=== PATIENT | female | born 1955 | race Caucasian/White ===

== ENCOUNTER → 2017-09-13 | Outpatient (CLI) | payer BC ==
--- NOTE | 2017-09-15 09:54 | MM ---
Reason for exam: screening (asymptomatic). Last mammogram was performed 11 months ago. History: Patient is postmenopausal. Family history of breast cancer in uncle at age 70 and breast cancer in paternal aunt at age 75. Physical Findings: A clinical breast exam by your physician is recommended on an annual basis and results should be correlated with mammographic findings. MG Screening Mammo w CAD Bilateral CC and MLO view(s) were taken. Prior study comparison: October 06, 2016, bilateral MG screening mammo w CAD. October 17, 2015, bilateral MG screening mammo w CAD. There are scattered fibroglandular densities. There is chronic nodularity in the left breast. No significant changes when compared with prior studies. ASSESSMENT: Negative, BI-RAD 1 RECOMMENDATION: Routine screening mammogram of both breasts in 1 year.
== END | disposition home or self-care (01) ==
LOC: RADMAMWWP 16:46
PROVIDERS: ATTEND Family Medicine
DX: Z12.31 Encounter for screening mammogram for malignant neoplasm of breast (principal)

== ENCOUNTER 2018-01-07 11:45 | Day surgery (SDC) | payer BC ==
[2018-01-04 15:19] VITALS: BMI 37.4
[~2018-01-07 11:45] MED LIST: LACTATED RINGERS 1,000 ML IV SCH
[2018-01-07 13:20] VITALS: RESP 16; TEMP 98.2
[2018-01-07] MEDS ORDERED: LIDOCAINE 1% 20 ML VIAL (10MG/ML) FOR IV START INTRADERMA ONE (13:32)
[2018-01-07] MEDS ORDERED: LIDOCAINE 1% INJ 10MG/ML (20 ML MDV) ONE (13:45)
[2018-01-07] MEDS ORDERED: PROPOFOL 10 MG/ML 20 ML VIAL IV ONE (13:45)
--- NOTE | 2018-01-07 13:59 | P.GSHP ---
History of Present Illness H&P Date: 01/07/18 Chief Complaint: Colon cancer screening Patient here today for colonoscopy. Last colonoscopy 5 years ago. She has a family history of colon cancer in her father. Last colonoscopy was normal. No bowel related complaints. Past Medical History Additional Past Medical History / Comment(s): 07/29/15 Pt admitted to floor s/ p Total R knee arthroplasty. Ear infections as a child. History of Any Multi-Drug Resistant Organisms: None Reported Past Surgical History: Hysterectomy, Joint Replacement, Orthopedic Surgery, Tonsillectomy Additional Past Surgical History / Comment(s): 07/29/15 Total R knee arthroplasty. 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 Past Anesthesia/Blood Transfusion Reactions: Family History of Problems w/ Anesthesia Additional Past Anesthesia/Blood Transfusion Reaction / Comment(s): States is now allergic to spinal anesthesia. Also states that her sister is difficult to wake up from anesthesia. Smoking Status: Never smoker - Past Family History Father Family Medical History: Cancer Additional Family Medical History / Comment(s): Father had colon cancer. He at age 83 or 84 yrs. Mother Additional Family Medical History / Comment(s): Mother had [employer] - a form of MD. She at age 85yrs. Medications and Allergies Home Medications Medication Instructions Recorded Confirmed Type Antiarthritic Combination No.2 900 mg PO DAILY 07/17/15 01/07/18 History [Glucosamine-Chondroitin] Cranberry Conc/C/Bacill Coag 1 tab PO DAILY 07/17/15 01/07/18 History [Cranberry Tablet] Multivit with Calcium,Iron,Min 1 tab PO DAILY 07/17/15 01/07/18 History [Women's Daily Multivitamin] Omeprazole [PriLOSEC] 20 mg PO AC-BRKFST 07/17/15 01/07/18 History Zolpidem [Ambien] 10 mg PO HS PRN 07/17/15 01/07/18 History Allergies Allergy/AdvReac Type Severity Reaction Status Date / Time adhesive tape Allergy Rash/Hives Verified 01/07/18 13:23 bee pollen Allergy Anaphylaxis Verified 01/07/18 13:23 Latex, Natural Rubber Allergy rash, Verified 01/07/18 13:23 facial swelling sulfamethoxazole Allergy lips numb Verified 03/23/18 13:23 [From Bactrim] trimethoprim [From Bactrim] Allergy lips numb Verified 01/07/18 13:23 spinal anesthesia Allergy Rash/Hives Uncoded 01/07/18 13:23 Surgical - Exam Vital Signs Temp Pulse Resp BP Pulse Ox 98.2 F 69 16 124/82 98 01/07/18 13:19 01/07/18 13:19 01/07/18 13:19 01/07/18 13:19 01/07/18 13:19 Physical exam: General: Well-developed, well-nourished HEENT: Normocephalic, sclerae nonicteric Abdomen: Nontender, nondistended Extremities: No edema Neuro: Alert and oriented Assessment and Plan (1) Colon cancer screening Narrative/Plan: Will proceed with colonoscopy at this time. Current Visit: Yes Status: Acute Code(s): Z12.11 - ENCOUNTER FOR SCREENING FOR MALIGNANT NEOPLASM OF COLON SNOMED Code(s): 101541769
--- NOTE | 2018-01-07 14:11 | P.PCN ---
Date of Procedure: 01/07/18 Procedure(s) Performed: PREOPERATIVE DIAGNOSIS: Colon cancer screening, family history POSTOPERATIVE DIAGNOSIS: Sigmoid colon polyp PROCEDURE: Colonoscopy with snare polypectomy ANESTHESIA: MAC SURGEON: Livan Murphy M.D. SPECIMENS: sigmoid polyp ENDOSCOPIC PROCEDURE: The patient was placed on the endoscopy table in the left decubitus position. The Olympus colonoscope was inserted into the anus and passed under direct visualization to the base of the cecum. The appendiceal orifice was visualized. From that point the scope was slowly withdrawn inspecting all surfaces carefully. There were no neoplastic inflammatory or polypoid lesions throughout the cecum, ascending, transverse, and ascending colon. In the sigmoid colon there was a small polyp removed using the snare with cautery technique. The remainder of the sigmoid and rectum appeared normal. There was no visible diverticulosis. Digital rectal examination was normal. The patient was taken to the recovery room in stable condition per anesthesia guidelines. RECOMMENDATIONS: await biopsy results. Follow-up colonoscopy 5 years.
[2018-01-07 14:39] VITALS: BP 132/62; PULSE 65
== END 2018-01-07 15:01 | disposition home or self-care (01) ==
LOC: ORWHC2ENDO 11:45
PROVIDERS: ATTEND Surgery
DX: Z12.11 Encounter for screening for malignant neoplasm of colon (principal); D12.5 Benign neoplasm of sigmoid colon; Z80.0 Family history of malignant neoplasm of digestive organs; Z79.899 Other long term (current) drug therapy; Z88.4 Allergy status to anesthetic agent; Z88.2 Allergy status to sulfonamides; Z91.030 Bee allergy status; Z91.040 Latex allergy status
CPT/HCPCS: 88305; 45385; J2001; J2704

== ENCOUNTER → 2018-10-21 | Outpatient (CLI) | payer BC ==
--- NOTE | 2018-10-30 11:21 | MM ---
Reason for exam: screening (asymptomatic). Last mammogram was performed 1 year and 1 month ago. History: Patient is postmenopausal. Family history of breast cancer in uncle at age 70 and breast cancer in paternal aunt at age 75. MG 3D Screening Mammo W/Cad Bilateral CC and MLO view(s) were taken. Prior study comparison: September 13, 2017, bilateral MG screening mammo w CAD. October 06, 2016, bilateral MG screening mammo w CAD. There are scattered fibroglandular densities. There are benign-appearing round bilateral breast calcifications. Chronic nodularity left breast. No discrete abnormality. ASSESSMENT: Benign, BI-RAD 2 RECOMMENDATION: Routine screening mammogram of both breasts in 1 year.
== END | disposition home or self-care (01) ==
LOC: RADMAMWWP 07:30
PROVIDERS: ATTEND Family Medicine
DX: Z12.31 Encounter for screening mammogram for malignant neoplasm of breast (principal)
CPT/HCPCS: 77063; 77067

== ENCOUNTER 2019-02-21 07:15 | Emergency (ER) | payer BC ==
[2019-02-21 07:22] VITALS: BP 154/78; PULSE 70; RESP 20; TEMP 97.5
[2019-02-21] MEDS ORDERED: DEXAMETHASONE SOD PHOSPHATE 10 MG/ML 1 ML VIAL IM STA (08:03)
--- NOTE | 2019-02-21 08:03 | ED ---
General Adult HPI - General Chief complaint: ENT Stated complaint: Sore throat Time Seen by Provider: 02/21/19 07:31 Source: patient, family, RN notes reviewed - History of Present Illness Initial comments: The patient 63-year-old female presented to the emergency room today with a chief complaint of a sore throat. Patient doesn't that symptoms started 1 week ago. Patient does admit that THE RIGHT SIDE OF THE THROAT. SHE STATES IT HURTS WHEN SHE SWALLOWS. SHE DESCRIBES IT A RAZOR BLADE FEELING. SHE DOES NOT THAT SHE HAD SIMILAR SYMPTOMS APPROXIMATELY 12-15 YEARS AGO WHEN SHE WAS DIAGNOSED WITH A LINGULAR TONSILLITIS. SHE STATES THAT SHE HAS BEEN FOLLOWING UP WITH THE FAMILY DOCTOR HAD HER ON AMOXICILLIN INITIALLY BUT SHE FOLLOWED UP YESTERDAY AND WAS CHANGED TO AZITHROMYCIN. SHE STATES SHE'S HAD ONE DOSE OF THIS. PATIENT STATES THAT WHICH WOKE UP SHE JUST FELT THAT THE PAIN WAS NOT ANY BETTER SO SHE DECIDED TO COME. THE EMERGENCY ROOM. SHE STATES THAT IT'S VERY SHORT WHEN SHE SWALLOWS. SHE DENIES ANY OTHER COMPLAINTS OR SYMPTOMS. Patient denies any recent fever, chills, shortness of breath, chest pain, back pain, abdominal pain, nausea or vomiting, numbness or tingling, headaches or visual changes, or any other complaints. - Related Data Home Medications Medication Instructions Recorded Confirmed Antiarthritic Combination No.2 900 mg PO DAILY 07/17/15 01/07/18 [Glucosamine-Chondroitin] Cranberry Conc/C/Bacill Coag 1 tab PO DAILY 07/17/15 01/07/18 [Cranberry Tablet] Multivit with Calcium,Iron,Min 1 tab PO DAILY 07/17/15 01/07/18 [Women's Daily Multivitamin] Omeprazole [PriLOSEC] 20 mg PO AC-BRKFST 07/17/15 01/07/18 Zolpidem [Ambien] 10 mg PO HS PRN 07/17/15 01/07/18 Allergies Allergy/AdvReac Type Severity Reaction Status Date / Time adhesive tape Allergy Rash/Hives Verified 02/21/19 07:22 bee pollen Allergy Anaphylaxis Verified 02/21/19 07:22 Latex, Natural Rubber Allergy rash, Verified 02/21/19 07:22 facial swelling sulfamethoxazole Allergy lips numb Verified 02/21/19 07:22 [From Bactrim] trimethoprim [From Bactrim] Allergy lips numb Verified 02/21/19 07:22 spinal anesthesia Allergy Rash/Hives Uncoded 02/21/19 07:22 Review of Systems ROS Statement: Those systems with pertinent positive or pertinent negative responses have been documented in the HPI. ROS Other: All systems not noted in ROS Statement are negative. Past Medical History Additional Past Medical History / Comment(s): 07/29/15 Pt admitted to floor s/p Total R knee arthroplasty. Ear infections as a child. History of Any Multi-Drug Resistant Organisms: None Reported Past Surgical History: Hysterectomy, Joint Replacement, Orthopedic Surgery, Tonsillectomy Additional Past Surgical History / Comment(s): 07/29/15 Total R knee arthroplasty. 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 Past Anesthesia/Blood Transfusion Reactions: Family History of Problems w/ Anesthesia Additional Past Anesthesia/Blood Transfusion Reaction / Comment(s): States is now allergic to spinal anesthesia. Also states that her sister is difficult to wake up from anesthesia. Past Psychological History: No Psychological Hx Reported Smoking Status: Never smoker Past Alcohol Use History: None Reported Past Drug Use History: None Reported - Past Family History Father Family Medical History: Cancer Additional Family Medical History / Comment(s): Father had colon cancer. He at age 83 or 84 yrs. Mother Family Medical History: Musculoskeletal Disorder Additional Family Medical History / Comment(s): Mother had [employer] - a form of MD. She at age 85yrs. General Exam - General Exam Comments Initial Comments: General: The patient is awake and alert, in no distress, and does not appear acutely ill. Eye: There is normal conjunctiva bilaterally. No signs of icterus. Ears, nose, mouth and throat: There are moist mucous membranes and no oral lesions. Uvula midline. Patient swallows without difficulty. No redness, exudate appreciated on exam. TMs clear bilaterally. Neck: The neck is supple, there is no tenderness or JVD. Cardiovascular: There is a regular rate and rhythm. No murmur, rub or gallop is appreciated. Respiratory: Lungs are clear to auscultation, respirations are non-labored, breath sounds are equal. No wheezes, stridor, rales, or rhonchi. Musculoskeletal: Normal ROM, no tenderness. Neurological: A&O x 3. CN II-XII intact, There are no obvious motor or sensory deficits. Coordination appears grossly intact. Speech is normal. Skin: Skin is warm and dry and no rashes or lesions are noted. Psychiatric: Cooperative, appropriate mood & affect, normal judgment. Course Vital Signs 02/21/19 07:20 Temperature 97.5 F L Pulse Rate 70 Respiratory 20 Rate Blood Pressure 154/78 O2 Sat by Pulse 98 Oximetry Medical Decision Making - Medical Decision Making Options were discussed with patient about imaging here in the emergency room. She was offered to have a CT of the area to rule out any worsening infection. Patient has declined CAT scan. She states she would like to try dose of steroids. Patient given dose of Decadron here in emergency room. She is advised continue with her antibiotics advised close follow-up the family doctor in the next few days. Advised return here to the emergency room symptoms increase or worsen. Disposition Clinical Impression: Acute pharyngitis Disposition: HOME SELF-CARE Condition: Good Instructions (If sedation given, give patient instructions): Pharyngitis (ED) Additional Instructions: Please use medication as discussed. Please follow-up with family doctor in the next 2 days of symptoms have not improved. Please return to emergency room if the symptoms increase or worsen or for any other concerns. Is patient prescribed a controlled substance at d/c from ED?: No Referrals: Geo Patino DO [Primary Care Provider] - 1-2 days Time of Disposition: 08:02
== END 2019-02-21 08:22 | disposition home or self-care (01) ==
LOC: EC 07:15
DX: J02.9 Acute pharyngitis, unspecified (principal); Z96.651 Presence of right artificial knee joint; Z53.29 Procedure and treatment not carried out because of patient's decision for other reasons; Z79.899 Other long term (current) drug therapy; Z91.048 Other nonmedicinal substance allergy status; Z91.040 Latex allergy status; Z88.2 Allergy status to sulfonamides; Z88.4 Allergy status to anesthetic agent
CPT/HCPCS: 99282; 96372; J1100

== ENCOUNTER → 2019-11-24 | Outpatient (CLI) | payer BC ==
--- NOTE | 2019-11-27 08:21 | MM ---
Reason for exam: screening (asymptomatic). Last mammogram was performed 1 year and 1 month ago. History: Patient is postmenopausal. Family history of breast cancer in uncle at age 70 and breast cancer in paternal aunt at age 75. Physical Findings: A clinical breast exam by your physician is recommended on an annual basis and results should be correlated with mammographic findings. MG 3D Screening Mammo W/Cad Bilateral CC and MLO view(s) were taken. Prior study comparison: October 21, 2018, bilateral MG 3d screening mammo w/cad. September 13, 2017, bilateral MG screening mammo w CAD. There are scattered fibroglandular densities. Benign appearing calcifications in the left breast and an intramammary lymph node. No suspicious abnormality. No significant changes when compared with prior studies. ASSESSMENT: Benign, BI-RAD 2 RECOMMENDATION: Routine screening mammogram of both breasts in 1 year.
== END | disposition home or self-care (01) ==
LOC: RADMAMWWP 08:56
PROVIDERS: ATTEND Family Medicine
DX: Z12.31 Encounter for screening mammogram for malignant neoplasm of breast (principal); Z80.3 Family history of malignant neoplasm of breast
CPT/HCPCS: 77063; 77067

== ENCOUNTER → 2021-01-31 | Outpatient (CLI) | payer BC ==
--- NOTE | 2021-02-03 14:34 | MM ---
Reason for exam: screening (asymptomatic). Last mammogram was performed 1 year and 2 months ago. History: Patient is postmenopausal. Family history of breast cancer in uncle at age 70 and breast cancer in paternal aunt at age 75. Physical Findings: A clinical breast exam by your physician is recommended on an annual basis and results should be correlated with mammographic findings. MG 3D Screening Mammo W/Cad Bilateral CC and MLO view(s) were taken. Prior study comparison: November 24, 2019, bilateral MG 3d screening mammo w/cad. October 21, 2018, bilateral MG 3d screening mammo w/cad. There are scattered fibroglandular densities. There are benign appearing round calcifications bilaterally. There is chronic nodularity in the left upper outer quadrant. There is no discrete abnormality. ASSESSMENT: Benign, BI-RAD 2 RECOMMENDATION: Routine screening mammogram of both breasts in 1 year.
== END | disposition home or self-care (01) ==
LOC: RADMAMWWP 07:52
PROVIDERS: ATTEND Family Medicine
DX: Z12.31 Encounter for screening mammogram for malignant neoplasm of breast (principal); Z80.3 Family history of malignant neoplasm of breast
CPT/HCPCS: 77063; 77067

== ENCOUNTER 2023-05-30 07:16 | Observation (INO) | payer BC, MEDICARE ==
[2023-05-30] MEDS ORDERED: PANTOPRAZOLE 40 MG/10 ML VIAL IVP STA (07:35)
[2023-05-30] MEDS ORDERED: SODIUM CHLORIDE 0.9% 500 ML 500 ML IV STA (07:35)
[2023-05-30] MEDS ORDERED: ONDANSETRON 4 MG/2 ML VIAL IVP STA (07:35)
[2023-05-30] MEDS ORDERED: MAG HYDROX/AL HYDROX/SIMETH 30 ML, HYOSCYAMINE ELIXIR 10 ML, LIDOCAINE 2% GLYDO JELLY 1... PO STA ×3 (07:36)
--- NOTE | 2023-05-30 07:47 | ED ---
General Adult HPI - General Chief complaint: Abdominal Pain Stated complaint: upper abd pain Time Seen by Provider: 05/30/23 07:26 Source: patient, RN notes reviewed, old records reviewed Mode of arrival: ambulatory Limitations: no limitations - History of Present Illness Initial comments: 68-year-old female presenting with presently 5 hours of epigastric abdominal pain with vomiting. Symptoms began at approximately 2 AM. She had taken some Tums with out relief and this was followed almost immediately put with vomiting. She denies any radiating symptoms. No fever. - Related Data Home Medications Medication Instructions Recorded Confirmed Zolpidem [Ambien] 10 mg PO HS PRN 07/17/15 05/30/23 Clindamycin Phosphate 1 applic TOPICAL BID 05/30/23 05/30/23 Escitalopram [Lexapro] 10 mg PO DAILY 05/30/23 05/30/23 Allergies Allergy/AdvReac Type Severity Reaction Status Date / Time adhesive tape Allergy Rash/Hives Verified 05/30/23 11:34 bee pollen Allergy Anaphylaxis Verified 05/30/23 11:34 Latex, Natural Rubber Allergy rash, Verified 05/30/23 11:34 facial swelling sulfamethoxazole Allergy lips numb Verified 05/30/23 11:34 [From Bactrim] trimethoprim [From Bactrim] Allergy lips numb Verified 05/30/23 11:34 spinal anesthesia Allergy Rash/Hives Uncoded 05/30/23 11:34 Review of Systems ROS Statement: Those systems with pertinent positive or pertinent negative responses have been documented in the HPI. ROS Other: All systems not noted in ROS Statement are negative. Past Medical History Additional Past Medical History / Comment(s): 07/29/15 Pt admitted to floor s/p Total R knee arthroplasty. Ear infections as a child. History of Any Multi-Drug Resistant Organisms: None Reported Past Surgical History: Hysterectomy, Joint Replacement, Orthopedic Surgery, Tonsillectomy Additional Past Surgical History / Comment(s): 07/29/15 Total R knee arthr oplasty. 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 Past Anesthesia/Blood Transfusion Reactions: Family History of Problems w/ Anesthesia Additional Past Anesthesia/Blood Transfusion Reaction / Comment(s): States is now allergic to spinal anesthesia. Also states that her sister is difficult to wake up from anesthesia. Past Psychological History: No Psychological Hx Reported Smoking Status: Never smoker Past Alcohol Use History: None Reported Past Drug Use History: None Reported - Past Family History Father Family Medical History: Cancer Additional Family Medical History / Comment(s): Father had colon cancer. He at age 83 or 84 yrs. Mother Family Medical History: Musculoskeletal Disorder Additional Family Medical History / Comment(s): Mother had IBM - a form of MD. She at age 85yrs. General Exam Limitations: no limitations General appearance: alert, in no apparent distress Head exam: Present: atraumatic, normocephalic Eye exam: Present: normal appearance, PERRL ENT exam: Present: normal exam Neck exam: Present: normal inspection. Absent: tenderness, meningismus Respiratory exam: Present: normal lung sounds bilaterally. Absent: respiratory distress Cardiovascular Exam: Present: regular rate, normal rhythm GI/Abdominal exam: Present: soft, tenderness (Epigastric and right upper quadrant). Absent: distended, guarding, rebound Extremities exam: Present: normal inspection, normal capillary refill Neurological exam: Present: alert, oriented X3, CN II-XII intact. Absent: motor sensory deficit Psychiatric exam: Present: normal affect, normal mood Skin exam: Present: warm, dry, intact Course Vital Signs 05/30/23 05/30/23 05/30/23 07:20 09:17 10:00 Temperature 98.3 F Pulse Rate 65 68 65 Respiratory 20 17 18 Rate Blood Pressure 160/84 130/62 121/65 O2 Sat by Pulse 99 96 96 Oximetry Medical Decision Making - Medical Decision Making Was pt. sent in by a medical professional or institution (, PA, WIRELESS TECHNICIAN, urgent care, hospital, or [facility]...) When possible be specific @ -No Did you speak to anyone other than the patient for history (EMS, parent, family, police, friend...)? What history was obtained from this source @ -No Did you review nursing and triage notes (agree or disagree)? Why? @ -I reviewed and agree with nursing and triage notes Were old charts reviewed (outside hosp., previous admission, EMS record, old EK G, old radiological studies, urgent care reports/EKG's, [facility] records)? Report findings @ -No old charts were reviewed Differential Diagnosis (chest pain, altered mental status, abdominal pain women, abdominal pain men, vaginal bleeding, weakness, fever, dyspnea, syncope, headache, dizziness, GI bleed, back pain, seizure, CVA, palpatations, mental health, musculoskeletal)? @ Differential Abdominal Pain Women: Appendicitis, Cholecystitis, diverticulosis, ischemic bowel, pancreatitis, hepatitis, UTI, gastroenteritis, AAA, incarcerated hernia, bowel obstruction, constipation, inflammatory bowel, hepatitis, peptic ulcer disease, splenic infarction, perforated viscus, vulvitis, ovarian torsion, PID, kidney stone, placenta abruption, this is not meant to be an all-inclusive list EKG interpreted by me (3pts min.). @ -Sinus rhythm rate of 65, NM interval 125, QRS duration 91, QTC 427 elevat ion. X-rays interpreted by me (1pt min.). @ -None done CT interpreted by me (1pt min.). @ -None done U/S interpreted by me (1pt. min.). @ -None done What testing was considered but not performed or refused? (CT, X-rays, U/S, labs)? Why? @ -None What meds were considered but not given or refused? Why? @ -None Did you discuss the management of the patient with other professionals (professionals i.e. , PA, WIRELESS TECHNICIAN, lab, RT, psych nurse, hospice social worker, toll collector supervisor, teacher, search and rescue officer, family independence case manager)? Give summary @ -[Dr. Deal Was smoking cessation discussed for >3mins.? @ -No Was critical care preformed (if so, how long)? @ -No Were there social determinants of health that impacted care today? How? (Homelessness, low income, unemployed, alcoholism, drug addiction, transport ation, low edu. Level, literacy, decrease access to med. care, usp, rehab)? @ -No Was there de-escalation of care discussed even if they declined (Discuss DNR or withdrawal of care, Hospice)? DNR status @ -No What co-morbidities impacted this encounter? (DM, HTN, Smoking, COPD, CAD, Cancer, CVA, ARF, Chemo, Hep., AIDS, mental health diagnosis, sleep apnea, morbid obesity)? @ -[ Was patient admitted / discharged? Hospital course, mention meds given and route, prescriptions, significant lab abnormalities, going to OR and other pertinent info. @ -[68-year-old female with epigastric right upper quadrant abdominal pain. Vision is in sinus rhythm. She has normal laboratory tests including CBC, CMP and troponin. Ultrasound shows gallstones likely the cause of her pain. She continues to have pain while the emergency department she will be admitted for symptomatic cholelithiasis. Admitted to general surgery. Undiagnosed new problem with uncertain prognosis? @ -No Drug Therapy requiring intensive monitoring for toxicity (Heparin, Nitro, Insulin, Cardizem)? @ -No Were any procedures done? @ -No Diagnosis/symptom? @ -[Cholelithiasis, symptomatic gallstones Acute, or Chronic, or Acute on Chronic? @ Acute Uncomplicated (without systemic symptoms) or Complicated (systemic symptoms)? @ -default Side effects of treatment? @ -No Exacerbation, Progression, or Severe Exacerbation? @ -No Poses a threat to life or bodily function? How? (Chest pain, USA, MS, pneumonia, PE, COPD, DKA, ARF, appy, cholecystitis, CVA, Diverticulitis, Homicidal, Suicidal, threat to staff... and all critical care pts) @ -[Low risk at this time - Lab Data Result diagrams: 05/30/23 07:37 05/30/23 07:37 Lab Results 05/30/23 05/30/23 05/30/23 Range/Units 07:37 07:37 07:37 WBC 7.9 (3.8-10.6) k/uL RBC 4.62 (3.80-5.40) m/uL Hgb 13.5 (11.4-16.0) gm/dL Hct 39.5 (34.0-46.0) % MCV 85.4 (80.0-100.0) fL MCH 29.3 (25.0-35.0) pg MCHC 34.3 (31.0-37.0) g/dL RDW 13.0 (11.5-15.5) % Plt Count 281 (150-450) k/uL MPV 6.9 Neutrophils % 69 % Lymphocytes % 19 % Monocytes % 6 % Eosinophils % 3 % Basophils % 1 % Neutrophils # 5.4 (1.3-7.7) k/uL Lymphocytes # 1.5 (1.0-4.8) k/uL Monocytes # 0.5 (0-1.0) k/uL Eosinophils # 0.2 (0-0.7) k/uL Basophils # 0.1 (0-0.2) k/uL PT 9.9 (9.0-12.0) sec INR 0.9 (<1.2) APTT 26.0 (22.0-30.0) sec Sodium (137-145) mmol/L Potassium (3.5-5.1) mmol/L Chloride (98-107) mmol/L Carbon Dioxide (22-30) mmol/L Anion Gap mmol/L BUN (7-17) mg/dL Creatinine (0.52-1.04) mg/dL Est GFR (CKD-EPI)AfAm (>60 ml/min/1.73 sqM) Est GFR (CKD-EPI)NonAf (>60 ml/min/1.73 sqM) Glucose (74-99) mg/dL Plasma Lactic Acid Fan (0.7-2.0) mmol/L Calcium (8.4-10.2) mg/dL Total Bilirubin (0.2-1.3) mg/dL AST (14-36) U/L ALT (4-34) U/L Alkaline Phosphatase (38-126) U/L Troponin I (0.000-0.034) ng/mL Total Protein (6.3-8.2) g/dL Albumin (3.5-5.0) g/dL Amylase (30-110) U/L Lipase (23-300) U/L Urine Color Colorless Urine Appearance Clear (Clear) Urine pH 7.0 (5.0-8.0) Ur Specific [place] 1.010 (1.001-1.035) Urine Protein Negative (Negative) Urine Glucose (UA) Negative (Negative) Urine Ketones Negative (Negative) Urine Blood Negative (Negative) Urine Nitrite Negative (Negative) Urine Bilirubin Negative (Negative) Urine Urobilinogen <2.0 (<2.0) mg/dL Ur Leukocyte Esterase Negative (Negative) 05/30/23 05/30/23 05/30/23 Range/Units 07:37 07:37 07:37 WBC (3.8-10.6) k/uL RBC (3.80-5.40) m/uL Hgb (11.4-16.0) gm/dL Hct (34.0-46.0) % MCV (80.0-100.0) fL MCH (25.0-35.0) pg MCHC (31.0-37.0) g/dL RDW (11.5-15.5) % Plt Count (150-450) k/uL MPV Neutrophils % % Lymphocytes % % Monocytes % % Eosinophils % % Basophils % % Neutrophils # (1.3-7.7) k/uL Lymphocytes # (1.0-4.8) k/uL Monocytes # (0-1.0) k/uL Eosinophils # (0-0.7) k/uL Basophils # (0-0.2) k/uL PT (9.0-12.0) sec INR (<1.2) APTT (22.0-30.0) sec Sodium 141 (137-145) mmol/L Potassium 3.9 (3.5-5.1) mmol/L Chloride 105 (98-107) mmol/L Carbon Dioxide 26 (22-30) mmol/L Anion Gap 10 mmol/L BUN 13 (7-17) mg/dL Creatinine 0.90 (0.52-1.04) mg/dL Est GFR (CKD-EPI)AfAm 77 (>60 ml/min/1.73 sqM) Est GFR (CKD-EPI)NonAf 67 (>60 ml/min/1.73 sqM) Glucose 112 H (74-99) mg/dL Plasma Lactic Acid Fan 1.8 (0.7-2.0) mmol/L Calcium 9.3 (8.4-10.2) mg/dL Total Bilirubin 0.4 (0.2-1.3) mg/dL AST 26 (14-36) U/L ALT 20 (4-34) U/L Alkaline Phosphatase 81 (38-126) U/L Troponin I <0.012 (0.000-0.034) ng/mL Total Protein 7.2 (6.3-8.2) g/dL Albumin 4.2 (3.5-5.0) g/dL Amylase 52 (30-110) U/L Lipase 147 (23-300) U/L Urine Color Urine Appearance (Clear) Urine pH (5.0-8.0) Ur Specific [place] (1.001-1.035) Urine Protein (Negative) Urine Glucose (UA) (Negative) Urine Ketones (Negative) Urine Blood (Negative) Urine Nitrite (Negative) Urine Bilirubin (Negative) Urine Urobilinogen (<2.0) mg/dL Ur Leukocyte Esterase (Negative) Disposition Clinical Impression: Cholelithiasis Disposition: ADMITTED IP TO THIS HOSP Condition: Stable Is patient prescribed a controlled substance at d/c from ED?: No Referrals: Geo Patino DO [Primary Care Provider] - 1-2 days Time of Disposition: 12:07
[2023-05-30 08:02] LABS: Basophils # (A) 0.1 k/uL (0-0.2); Basophils % (A) 1 %; Eosinophils # (A) 0.2 k/uL (0-0.7); Eosinophils % (A) 3 %; HCT 39.5 % (34.0-46.0); HGB 13.5 gm/dL (11.4-16.0); Lymphocytes # (A) 1.5 k/uL (1.0-4.8); Lymphocytes % (A) 19 %; MCH 29.3 pg (25.0-35.0); MCHC 34.3 g/dL (31.0-37.0); MCV 85.4 fL (80.0-100.0); Mean Platelet Volume 6.9; Monocytes # (A) 0.5 k/uL (0-1.0); Monocytes % (A) 6 %; Neutrophils # (A) 5.4 k/uL (1.3-7.7); Neutrophils % (A) 69 %; Platelet Count 281 k/uL (150-450); RBC 4.62 m/uL (3.80-5.40); WBC 7.9 k/uL (3.8-10.6)
[2023-05-30 08:14] LABS: ALT 20 U/L (4-34); AST 26 U/L (14-36); African American GFR (CKD) 77 (>60 ml/min/1.73 sqM); Albumin 4.2 g/dL (3.5-5.0); Alkaline Phosphatase 81 U/L (38-126); Amylase 52 U/L (30-110); Anion Gap 10 mmol/L; Blood Urea Nitrogen 13 mg/dL (7-17); Calcium 9.3 mg/dL (8.4-10.2); Carbon Dioxide 26 mmol/L (22-30); Chloride 105 mmol/L (98-107); Glucose 112 mg/dL (74-99); Lipase 147 U/L (23-300); Non-African American GFR(CKD) 67 (>60 ml/min/1.73 sqM); Potassium 3.9 mmol/L (3.5-5.1); Sodium 141 mmol/L (137-145); Total Bilirubin 0.4 mg/dL (0.2-1.3); Total Protein 7.2 g/dL (6.3-8.2)
--- NOTE | 2023-05-30 08:17 | XR ---
EXAMINATION TYPE: XR chest 2V DATE OF EXAM: 05/30/2023 COMPARISON: NONE HISTORY: Shortness of breath TECHNIQUE: Frontal and lateral views of the chest are obtained. FINDINGS: Scattered senescent parenchymal changes noted. Hyperinflation compatible with COPD. No evidence for infiltrate. No evidence for atelectasis. Heart size is stable. Mediastinal structures are stable and grossly unremarkable. No evidence for hilar prominence. Degenerative changes dorsal spine. IMPRESSION: 1. No evidence for acute pulmonary disease.
[2023-05-30 08:26] LABS: INR 0.9 (<1.2); Prothrombin Time 9.9 sec (9.0-12.0)
[2023-05-30] MEDS ORDERED: HYDROmorphone 0.5 MG/0.5 ML SYRINGE IVP STA ×2 (09:01→11:01)
[2023-05-30 09:27] LABS: Appearance,Urine Clear (Clear); Bilirubin,Urine Negative (Negative); Blood,Urine Negative (Negative); Color,Urine Colorless; Glucose,Urine (UA) Negative (Negative); Ketones,Urine Negative (Negative); Leukocyte Esterase,Urine Negative (Negative); Nitrite,Urine Negative (Negative); Protein,Urine Negative (Negative); Urobilinogen,Urine <2.0 mg/dL (<2.0)
--- NOTE | 2023-05-30 09:51 | US ---
EXAMINATION TYPE: US gallbladder DATE OF EXAM: 05/30/2023 COMPARISON: NONE CLINICAL INDICATION: Female, 68 years old with history of upper abd pain; Upper abdominal pain x 7 ho urs. TECHNIQUE: Multiple sonographic images of the right upper quadrant are obtained. FINDINGS: EXAM MEASUREMENTS: Liver Length: 17.5 cm Gallbladder Wall: 0.22 cm CBD: 0.51 cm Right Kidney: 11.1 x 5.5 x 5.0 cm CAP MAKER NOTES: Limited due to gas Pancreas: Tail was not well seen. Liver: Appears slightly coarse, measures upper limits Gallbladder: Hyperechoic material seen within: 3.2 x 1.6 x 1.0 cm. Evidence for sonographic Joseph's sign: Patient feels pain in epigastric area, pain extends to the right side CBD: Appears wnl Right Kidney: No hydronephrosis or masses seen IMPRESSION: 1. Uncomplicated cholelithiasis. 2. Mild hepatic steatosis suggested.
[2023-05-30] MEDS: SODIUM CHLORIDE 0.9% 1,000 ML IV SCH (11:10)
[2023-05-30] MEDS ORDERED: traMADol 50 MG TAB PO PRN (11:40)
[2023-05-30] MEDS ORDERED: NALOXONE 0.4 MG/ML 1 ML VIAL IV PRN (11:40)
[2023-05-30] MEDS ORDERED: ZOLPIDEM 5 MG TAB PO PRN (11:44)
--- NOTE | 2023-05-30 11:51 | P.GSHP ---
History of Present Illness H&P Date: 05/30/23 Chief Complaint: Abdominal pain The patient began having abdominal pain about 2 AM. She went to bed and woke up at 4. Ended up going to the bathroom and trying to have a bowel movement. She went back to sleep and then was awoken with more severe pain at 6 AM and came to the ER. She hasn't really had any episodes of this in the past. She had vomiting 1 when the pain was severe. The pain is epigastric and radiates around to the right side. There is a family history of gallbladder disease in her daughter. She had a salmon which and some cheesy bread last night. N orromyly doesn't eat fatty foods. Denies jaundice, tea-colored urine or acholic stool. No blood in the stool or dark tarry stool. While in the emergency department she received some pain medication as feeling somewhat better. She still has some discomfort. - Review of Systems All systems: negative Past Medical History Additional Past Medical History / Comment(s): 07/29/15 Pt admitted to floor s/p Total R knee arthroplasty. Ear infections as a child. History of Any Multi-Drug Resistant Organisms: None Reported Past Surgical History: Hysterectomy, Joint Replacement, Orthopedic Surgery, Tonsillectomy Additional Past Surgical History / Comment(s): 07/29/15 Total R knee arthroplasty. 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 Past Anesthesia/Blood Transfusion Reactions: Family History of Problems w/ Anesthesia Additional Past Anesthesia/Blood Transfusion Reaction / Comment(s): States is now allergic to spinal anesthesia. Also states that her sister is difficult to wake up from anesthesia. Past Psychological History: No Psychological Hx Reported Smoking Status: Never smoker Past Alcohol Use History: None Reported Past Drug Use History: None Reported - Past Family History Father Family Medical History: Cancer Additional Family Medical History / Comment(s): Father had colon cancer. He at age 83 or 84 yrs. Mother Family Medical History: Musculoskeletal Disorder Additional Family Medical History / Comment(s): Mother had IBM - a form of MD. She at age 85yrs. Medications and Allergies Home Medications Medication Instructions Recorded Confirmed Type Zolpidem [Ambien] 10 mg PO HS PRN 07/17/15 05/30/23 History Clindamycin Phosphate 1 applic TOPICAL BID 05/30/23 05/30/23 History Escitalopram [Lexapro] 10 mg PO DAILY 05/30/23 05/30/23 History Allergies Allergy/AdvReac Type Severity Reaction Status Date / Time adhesive tape Allergy Rash/Hives Verified 05/30/23 11:34 bee pollen Allergy Anaphylaxis Verified 05/30/23 11:34 Latex, Natural Rubber Allergy rash, Verified 05/30/23 11:34 facial swelling sulfamethoxazole Allergy lips numb Verified 05/30/23 11:34 [From Bactrim] trimethoprim [From Bactrim] Allergy lips numb Verified 05/30/23 11:34 spinal anesthesia Allergy Rash/Hives Uncoded 05/30/23 11:34 Surgical - Exam Osteopathic Statement: *. No significant issues noted on an osteopathic structural exam other than those noted in the History and Physical/Consult. Vital Signs Temp Pulse Resp BP Pulse Ox 98.3 F 65 20 160/84 99 05/30/23 07:20 05/30/23 07:20 05/30/23 07:20 05/30/23 07:20 05/30/23 07:20 - General well developed, well nourished - Eyes normal ocular movement - ENT normal mucosa - Neck trachea midline - Respiratory normal expansion, clear to auscultation - Cardiovascular Rhythm: regular - Abdomen Abdomen: soft, tender (Minimal epigastric tenderness without guarding or rebound), bowel sounds - Integumentary no abnormal pigmentation - Psychiatric oriented to time, oriented to person, oriented to place, speech is normal, memory intact Results - Labs 05/30/23 07:37 05/30/23 07:37 Abnormal Lab Results - Last 24 Hours (Table) 05/30/23 Range/Units 07:37 Glucose 112 H (74-99) mg/dL Diabetes panel 05/30/23 Range/Units 07:37 Sodium 141 (137-145) mmol/L Potassium 3.9 (3.5-5.1) mmol/L Chloride 105 (98-107) mmol/L Carbon Dioxide 26 (22-30) mmol/L BUN 13 (7-17) mg/dL Creatinine 0.90 (0.52-1.04) mg/dL Glucose 112 H (74-99) mg/dL Calcium 9.3 (8.4-10.2) mg/dL AST 26 (14-36) U/L ALT 20 (4-34) U/L Alkaline Phosphatase 81 (38-126) U/L Total Protein 7.2 (6.3-8.2) g/dL Albumin 4.2 (3.5-5.0) g/dL Calcium panel 05/30/23 Range/Units 07:37 Calcium 9.3 (8.4-10.2) mg/dL Albumin 4.2 (3.5-5.0) g/dL Pituitary panel 05/30/23 Range/Units 07:37 Sodium 141 (137-145) mmol/L Potassium 3.9 (3.5-5.1) mmol/L Chloride 105 (98-107) mmol/L Carbon Dioxide 26 (22-30) mmol/L BUN 13 (7-17) mg/dL Creatinine 0.90 (0.52-1.04) mg/dL Glucose 112 H (74-99) mg/dL Calcium 9.3 (8.4-10.2) mg/dL Adrenal panel 05/30/23 Range/Units 07:37 Sodium 141 (137-145) mmol/L Potassium 3.9 (3.5-5.1) mmol/L Chloride 105 (98-107) mmol/L Carbon Dioxide 26 (22-30) mmol/L BUN 13 (7-17) mg/dL Creatinine 0.90 (0.52-1.04) mg/dL Glucose 112 H (74-99) mg/dL Calcium 9.3 (8.4-10.2) mg/dL Total Bilirubin 0.4 (0.2-1.3) mg/dL AST 26 (14-36) U/L ALT 20 (4-34) U/L Alkaline Phosphatase 81 (38-126) U/L Total Protein 7.2 (6.3-8.2) g/dL Albumin 4.2 (3.5-5.0) g/dL - Imaging US - abdomen: report reviewed Assessment and Plan (1) Cholelithiasis Current Visit: Yes Status: Acute Code(s): K80.20 - CALCULUS OF GALLBLADDER W/O CHOLECYSTITIS W/O OBSTRUCTION SNOMED Code(s): 970754325 (2) Nausea and vomiting Current Visit: Yes Status: Acute Code(s): R11.2 - NAUSEA WITH VOMITING, UNSPECIFIED SNOMED Code(s): 88462772 Plan: Patient is more comfortable after pain medication. No evidence of acute cholecystitis. She'll be brought into the hospital and given some IV fluids, pain medication or antibiotics as needed along with DVT and ulcer prophylaxis. We'll start her on a diet if she is able to tolerate that she can be discharged in the morning and will schedule her for elective surgery. Questions were encouraged and answered.
[2023-05-30] MEDS: HYDROmorphone 0.5 MG/0.5 ML SYRINGE IVP PRN ×2 (13:53→20:09)
[2023-05-30] MEDS: NON FORMULARY DRUG (Clindamycin Phosphate [Clindamycin Phosphate] 30 ML Solution) TOPICAL SCH (20:11)
[2023-05-31] MEDS: NON FORMULARY DRUG (Clindamycin Phosphate [Clindamycin Phosphate] 30 ML Solution) TOPICAL SCH ×2 (07:35→20:03)
[2023-05-31] MEDS: ESCITALOPRAM 10 MG TAB PO SCH (08:49)
[2023-05-31] MEDS: PANTOPRAZOLE 40 MG/10 ML VIAL IVP SCH (08:49)
[2023-05-31] MEDS: SODIUM CHLORIDE 0.9% 1,000 ML IV SCH (08:50)
[2023-05-31 14:30] LABS: ALT 19 U/L (8-44); AST 22 U/L (13-35); Alkaline Phosphatase 81 U/L (41-126); Blood Urea Nitrogen 8.7 mg/dL (9.0-27.0); Calcium 8.6 mg/dL (8.7-10.3); Carbon Dioxide 25.9 mmol/L (21.6-31.8); Chloride 104 mmol/L (96-109); Globulin 2.1 d/dL (1.6-3.3); Glucose 103 mg/dL (70-110); Potassium 4.3 mmol/L (3.5-5.5); Sodium 140 mmol/L (135-145); Total Bilirubin 0.6 mg/dL (0.3-1.2); Total Protein 6.1 d/dL (6.2-8.2)
[2023-05-31 14:56] LABS: Basophils # (A) 0.04 X 10*3/uL (0.00-0.10); Basophils % (A) 0.5 %; Eosinophils # (A) 0.08 X 10*3/uL (0.04-0.35); Eosinophils % (A) 0.9 %; HCT 36.8 % (37.2-46.3); HGB 12.2 d/dL (12.0-15.0); Lymphocytes # (A) 1.72 X 10*3/uL (0.90-5.00); Lymphocytes % (A) 19.4 %; MCH 29.3 pg (27.0-32.0); MCHC 33.2 d/dL (32.0-37.0); MCV 88.2 FL (80.0-97.0); Mean Platelet Volume 9.3 FL (9.5-12.2); Monocytes # (A) 0.67 X 10*3/uL (0.20-1.00); Monocytes % (A) 7.6 %; NRBC Per 100 WBC 0 X 10*3/uL (0.00-0.01); Neutrophils # (A) 6.32 X 10*3/uL (1.80-7.70); Neutrophils % (A) 71.3 %; Platelet Count 273 X 10*3/uL (140-440); RBC 4.17 X 10*6/uL (4.10-5.20); WBC 8.86 X 10*3/uL (4.50-10.00)
[2023-05-31] MEDS ORDERED: LACTATED RINGERS 1,000 ML IV ONE (15:21)
[2023-05-31] MEDS ORDERED: ONDANSETRON 4 MG/2 ML VIAL ONE (15:22)
[2023-05-31] MEDS ORDERED: ONDANSETRON 4 MG/2 ML VIAL IVP ONE (15:26)
[2023-05-31] MEDS ORDERED: DEXAMETHASONE SOD PHOSPHATE 4 MG/ML 1 ML VIAL IVP ONE (15:26)
--- NOTE | 2023-05-31 16:16 | P.PN ---
Progress Note - Text Progress Note Date: 05/31/23 The patient was seen on rounds this morning. She was persisting in having pain requiring pain medication. Low-grade temperature 99.2. Due to the persistent discomfort we will proceed with laparoscopic cholecystectomy possible open. The procedure, risk and complications along with usual postoperative course were discussed. Questions were encouraged and answered.
[2023-05-31] MEDS ORDERED: LIDOCAINE 2% INJ 20 MG/ML (2 ML VIAL) ONE (16:18)
[2023-05-31] MEDS ORDERED: NEOSTIGMINE 1 MG/ML 10 ML VIAL ONE (16:18)
[2023-05-31] MEDS ORDERED: SUCCINYLCHOLINE CHLORIDE 200 MG/10 ML VIAL IV ONE (16:18)
[2023-05-31] MEDS ORDERED: PROPOFOL 10 MG/ML 20 ML VIAL IV ONE (16:18)
[2023-05-31] MEDS ORDERED: fentaNYL (PF) 50 MCG/ML 2 ML AMP ONE (16:18)
[2023-05-31] MEDS ORDERED: ROCURONIUM 10 MG/ML (5 ML VIAL) IV ONE (16:18)
[2023-05-31] MEDS ORDERED: GLYCOPYRROLATE 0.2 MG/ML 2 ML VIAL ONE (16:18)
[2023-05-31] MEDS ORDERED: BUPIVACAINE (PF) 0.25% 10 ML VIAL SQ ONE ×2 (16:39)
[2023-05-31] MEDS ORDERED: LIDOCAINE 1%-EPI 1:100,000 50 ML VIAL SQ ONE ×2 (16:39)
--- NOTE | 2023-05-31 17:18 | P.OP ---
Date of Procedure: 05/31/23 Preoperative Diagnosis: Cholelithiasis, biliary colic Postoperative Diagnosis: Cholelithiasis, acute cholecystitis, duct of L[place]chka Procedure(s) Performed: Laparoscopic cholecystectomy Anesthesia: URSULA Surgeon: Cadence Deal Estimated Blood Loss (ml): 25 Pathology: other Condition: stable Disposition: PACU Indications for Procedure: Patient presented the emergency department with abdominal pain. There is evidence of cholelithiasis but not cholecystitis. Due to persistent pain however she was watched overnight. She was continuing to have pain and discomfort this morning requiring pain medication therefore recommended a laparoscopic cholecystectomy Description of Procedure: Patient's taken the operative suite where she is prepped and draped in the usual sterile manner under general endotracheal anesthetic. A supraumbilical incision was made and a varies needle was placed into the abdominal cavity. Pneumoperitoneum was established with CO2 gas. Sites are chosen for accessory trochars needs are placed through small skin incisions. The gallbladder is distended and somewhat erythematous. It's able to be grasped and retracted superiorly. There is noted to be a stone impacted in the proximal cystic duct. It's milked back into the gallbladder. The cystic duct is then triply clipped and cut. It's further secured with 0 PDS Endoloop. The gallbladder is dissected free from the liver bed. Small bleeding points are controlled with el ectrocautery. The gallbladder is placed into a specimen retrieval bag. The liver bed is irrigated. There is noted to be small trickle of bile coming from the liver bed. This is irrigated and it does reaccumulate. A small ductal structure was able to be identified and it was clipped with endoclips 2. It was further watched and there was no further bile leakage noted. The excess irrigant was suctioned out. The pneumoperitoneum was released. The trochars were removed. The skin and fascia at the umbilicus was extended somewhat to allow for removal of the gallbladder. The fascia at the umbilicus was closed with 0 Vicryl. The skin incisions were closed with nani. Dressings were applied. She tolerated the procedure without difficulty and was taken to recovery room in satisfactory condition. According to or personnel, all counts were correct.
[2023-05-31] MEDS ORDERED: ONDANSETRON 4 MG/2 ML VIAL IVP PRN (19:36)
[2023-06-01 08:04] VITALS: BP 121/71; PULSE 66; RESP 14; TEMP 97.8
[2023-06-01] MEDS: PANTOPRAZOLE 40 MG/10 ML VIAL IVP SCH (08:41)
[2023-06-01] MEDS: ESCITALOPRAM 10 MG TAB PO SCH (08:41)
[2023-06-01] MEDS: NON FORMULARY DRUG (Clindamycin Phosphate [Clindamycin Phosphate] 30 ML Solution) TOPICAL SCH (08:42)
[2023-06-01] MEDS: SODIUM CHLORIDE 0.9% 1,000 ML IV SCH ×2 (08:42→08:43)
== END 2023-06-01 12:18 | disposition home or self-care, planned readmission (81) ==
LOC: EC 07:16 → 5NMEDONC 11:40
PROVIDERS: ADMIT Surgery; ATTEND Surgery
DX: K80.00 Calculus of gallbladder with acute cholecystitis without obstruction (principal); Z79.899 Other long term (current) drug therapy; Z88.2 Allergy status to sulfonamides; Z91.040 Latex allergy status
CPT/HCPCS: 96376 ×4; 96361 ×3; 96365; 96366; 96375; 99285; 36415; 93005; 88304; 80053 ×2; 82150; 83605; 83690; 84484; 85025 ×2; 85610; 85730; 81003; 71046; 76705; 47562; G0378 ×3; J0330; J1100; J2710; J0690 ×2; J2405 ×2; J3010; J2704; C9113 ×3; J1170; J2001; J0665

== ENCOUNTER → 2024-10-09 | Outpatient (CLI) | payer BC ==
--- NOTE | 2024-10-10 08:30 | MM ---
Reason for Exam: Screening (asymptomatic). Last mammogram was performed 3 year(s) and 8 month(s) ago. Patient History: Menarche at age 13. First Full-Term at age 25. Hysterectomy at age 43. Postmenopausal. Paternal aunt had breast cancer, age 75. Maternal uncle had breast cancer, age 70. Risk Values: Nidia 5 year model risk: 1.7%. NCI Lifetime model risk: 5.7%. Prior Study Comparison: 10/21/2018 Bilateral Screening Mammogram, [facility]. 11/24/2019 Bilateral Screening Mammogram, [facility]. 01/31/2021 Bilateral Screening Mammogram, [facility]. Tissue Density: There are scattered areas of fibroglandular density. Findings: Analyzed By CAD. There is no suspicious group of microcalcifications or new suspicious mass in either breast. Chronic nodularity stable. Benign calcifications stable. Overall Assessment: Benign, BI-RAD 2 Management: Screening Mammogram of both breasts in 1 year. . Patient should continue monthly self-breast exams. A clinical breast exam by your physician is recommended on an annual basis. This exam should not preclude additional follow-up of suspicious palpable abnormalities. Note on Nidia scores and lifetime risk: 1. A Nidia score greater than 3% is considered moderate risk. If this is the case, consider specialist referral to assess eligibility for a risk reducing agent. 2. If overall lifetime risk for the development of breast cancer is 20% or higher, the patient may qualify for future screening with alternating mammogram and breast MRI. [facility], , 10/10/2024 8:27 AM. Electronically signed and approved by: Mirza Johnston M.D. Radiolog[facility]
== END | disposition home or self-care (01) ==
LOC: RADMAMWWP 11:19
PROVIDERS: ATTEND Family Medicine
DX: Z12.31 Encounter for screening mammogram for malignant neoplasm of breast (principal); Z80.3 Family history of malignant neoplasm of breast; Z78.0 Asymptomatic menopausal state; R92.323 Mammographic fibroglandular density, bilateral breasts
CPT/HCPCS: 77063; 77067